=== PATIENT | male | born 2000 | race Caucasian/White ===

== ENCOUNTER 2024-10-23 16:12 | Emergency (ER) | payer MEDICAID, OTHER ==
[~2024-10-23] VITALS: Ht 162.6 cm; Wt 100.0 kg
[2024-10-23 16:22] VITALS: BP 157/98; PULSE 18; RESP 18; TEMP 98.7; O2SAT 100
== END 2024-10-23 16:46 | disposition home or self-care (01) ==
LOC: EMS 16:15
DX: I80.9 Phlebitis and thrombophlebitis of unspecified site (principal)
CPT/HCPCS: 99282; Z7502